=== PATIENT | male | born 1975 | race Caucasian/White ===

== ENCOUNTER → 2016-12-24 | Outpatient (CLI) | payer BC ==
[~2016-12-24] MED LIST: AMOX1TAB12 PO; PRED20TA PO
[2016-12-24 14:46] VITALS: BP 141/87
--- NOTE | 2016-12-24 14:46 | Urgent Care T Sheet Gen (E) ---
Intake General Temperature (Fahrenheit): 97.7 Pulse: 86 Blood Pressure Systolic: 141 Blood Pressure Diastolic: 87 Respirations: 18 SPO2: 97 History of Present Illness Initial Comments Patient presents with illness x 5 days. Symptoms worsened last night. Patient had been on vacation and noticed some PND, sinus congestion and chest congestion. Worse with diving and flying. L ear pain developed last night. No meds. Home Meds Active Scripts Prednisone 20 Mg [id number] Mg PO DAILY #6 TAB Prov:SELZER,DOROTHEA D PA 12/24/16 Amoxicillin/Clavulanate Potassium (Augmentin 875mg/125mg)1 Each Tablet1 Tab PO BID #14 TAB Ref 0 Prov:SELZER,DOROTHEA D PA 12/24/16 Respiratory Constitutional Symptoms: No syptoms reported EENTM: Ear pain Nose Congestion Respiratory: Cough Cardiovascular: No symptoms reported Gastrointestinal/Abdominal: No symptoms reported All Other Systems Reviewed Remaining Systems: All other systems reviewed with negative findings Physical Exam Physical Exam General Appearance: WD/WN No apparent distress Eyes, Ears, Nose, Throat Ex: TM abnormal (L) (red, bulging) Pharyngeal erythema (cobblestone appearance with PND) Other (nasal congestion.) Neck Exam: SuppleNo Lymphadenopathy Respiratory Exam: Lungs clear (didn't cough during exam.) Normal breath sounds Cardiovascular Exam: Regular rate, rhythm Departure Urgent Care Impression Impression: Primary Impression: Otitis media Qualified Code: H66.002 - Acute suppurative otitis media without spontaneous rupture of ear drum, left ear Additional Impressions: Sinusitis Qualified Code: J01.00 - Acute maxillary sinusitis, unspecified Eustachian tube dysfunction Qualified Code: H69.82 - Other specified disorders of Eustachian tube, left ear Departure Disposition: HOME OR SELF-CARE Condition: Stable Referrals: KEM ISLAS MD (PCP) Additional Instructions: I have started the patient on Augmentin for treatment The Prednisone will help with fluid in the ears and inflammation Rest. Fluids No NSAIDS while on steroid Return as needed Patient understands DC instructions. All questions were answered. Scripts Prednisone 20 Mg [id number] Mg PO DAILY #6 TAB Prov:SELZER,DOROTHEA D PA 12/24/16 Amoxicillin/Clavulanate Potassium (Augmentin 875mg/125mg)1 Each Tablet1 Tab PO BID #14 TAB Ref 0 Prov:SELZER,DOROTHEA D PA 12/24/16 End of report . DOROTHEA PRESCOTT December 24, 2016 10:28
== END ==
LOC: MHUC 10:11
PROVIDERS: ATTEND Physician Assistant
DX: H66.002 Acute suppurative otitis media without spontaneous rupture of ear drum, left ear (principal); J01.00 Acute maxillary sinusitis, unspecified; H69.82 Other specified disorders of Eustachian tube, left ear
CPT/HCPCS: 99213